=== PATIENT | male | born 1985 | race Caucasian/White ===

== ENCOUNTER 2019-09-19 09:45 | Outpatient (RCR) | payer BC ==
[2019-09-19 10:43] LABS: SEMEN VOLUME 2.5 ML (1.5-5.0)
== END 2019-12-18 | disposition home or self-care (01) ==
LOC: LAB 09:45
PROVIDERS: ATTEND Obstetrics & Gynecology
DX: Z31.41 Encounter for fertility testing (principal)
CPT/HCPCS: 89320